=== PATIENT | male | born 2000 | race American Indian/Alaskan Native ===

== ENCOUNTER 2021-02-18 13:55 | Emergency (ER) | payer BC ==
--- NOTE | 2021-02-18 14:19 | Emergency Department Report ---
ED Male HPI - General Chief complaint: Urogenital-Male Stated complaint: TESTICLE PAIN Time Seen by Provider: 02/18/21 14:10 Source: patient Mode of arrival: Ambulatory Limitations: No Limitations - History of Present Illness Initial comments: This is a 20-year-old male who presents the emergency department the chief complaint of right testicular pain that has been ongoing for the past 3 years but has been more consistent and worsening over the past week. He reports in 2018 he had a testicular torsion of the right testicle that required surgery. He states the time from the onset of his pain until the time he had surgery was approximately 12 hours. He states over the last 3 years he has noticed that the right testicle has been much smaller than the left testicle and he feels small area of pinching that he thinks may be due to the stitches still being in his scrotum. He also reports a smooth area around the right testicle that he thinks may be causing him some pain. He denies any dysuria, penile discharge, fever, chills, night sweats, headache, dizziness, blurry vision, nausea, vomiting, diarrhea, chest pain or shortness of breath, abdominal pain or any other associated symptoms. - Related Data Previous Rx's Medication Instructions Recorded Last Taken Type Naproxen 500 mg PO BID #20 tablet 02/18/21 Unknown Rx Allergies Allergy/AdvReac Type Severity Reaction Status Date / Time LOBSTER Allergy Itching Uncoded 02/18/21 14:01 SHRIMP Allergy Itching Uncoded 02/18/21 14:01 ED Review of Systems ROS: Stated complaint: TESTICLE PAIN Other details as noted in HPI Comment: All other systems reviewed and negative Constitutional: denies: chills, fever Eyes: denies: eye pain, eye discharge, vision change ENT: denies: ear pain, throat pain Respiratory: denies: cough, shortness of breath, wheezing Cardiovascular: denies: chest pain, palpitations Endocrine: no symptoms reported Gastrointestinal: denies: abdominal pain, nausea, diarrhea Genitourinary: as per HPI, testicular pain. denies: urgency, dysuria Musculoskeletal: denies: back pain, joint swelling, arthralgia Skin: denies: rash, lesions Neurological: denies: headache, weakness, paresthesias Psychiatric: denies: anxiety, depression Hematological/Lymphatic: denies: easy bleeding, easy bruising ED Past Medical Hx - Past Medical History Previous Medical History?: No - Surgical History Past Surgical History?: Yes Additional Surgical History: TORSION - Medications Home Medications: Home Medications Medication Instructions Recorded Confirmed Last Taken Type Naproxen 500 mg PO BID #20 tablet 02/18/21 Unknown Rx ED Physical Exam - General Limitations: No Limitations General appearance: alert, in no apparent distress - Head Head exam: Present: atraumatic, normocephalic - Eye Eye exam: Present: normal appearance, PERRL, EOMI Pupils: Present: normal accommodation - ENT ENT exam: Present: normal exam, normal orophraynx, mucous membranes moist - Neck Neck exam: Present: normal inspection. Absent: tenderness, meningismus - Respiratory Respiratory exam: Present: normal lung sounds bilaterally. Absent: respiratory distress - Cardiovascular Cardiovascular Exam: Present: regular rate, normal rhythm. Absent: systolic murmur, diastolic murmur, rubs, gallop - GI/Abdominal GI/Abdominal exam: Present: soft, normal bowel sounds. Absent: distended, tenderness, guarding - Rectal Rectal exam: Present: deferred - exam: Present: normal inspection, testicular tenderness (Mild tenderness to the right epididymis, the right testicle is much smaller than the left. There is no scrotal edema. There are no obvious inguinal hernias.), vertical testicular lie (Testicles are lying low in the scrotum) - Extremities Exam Extremities exam: Present: normal inspection, full ROM, normal capillary refill. Absent: tenderness, calf tenderness - Back Exam Back exam: Present: normal inspection - Neurological Exam Neurological exam: Present: alert, oriented X3 - Psychiatric Psychiatric exam: Present: normal affect, normal mood - Skin Skin exam: Present: warm, dry, intact, normal color. Absent: rash ED Course Vital Signs 02/18/21 02/18/21 13:57 14:03 Temperature 98.1 F Pulse Rate 82 Respiratory 16 20 Rate Blood Pressure 119/62 [Right] O2 Sat by Pulse 100 Oximetry - Reevaluation(s) Reevaluation #1: 02/18/21 14:48 Based on the patient's description and his exam I suspect that there may be atrophy of the right testicle secondary to the previous torsion since there was 12 hours between revascularization in 2018. The area of pinching I suspect could be from where he had sutures although I think it be unlikely to still have sutures in the scrotum. The area of tenderness around the testicle I think is likely secondary to the epididymis. He was confident that he had not come in contact with any sexually transmitted infections. We did check a urine sample that is pending. Ultrasound was ordered. I plan to have him follow-up with urology on these findings possibly with antibiotics if epididymoorchitis is seen on ultrasound or infection is seen in the urine. ED Medical Decision Making - Lab Data Lab Results 02/18/21 Range/Units Unknown Urine Bilirubin Neg (Negative) Lab Results 02/18/21 Range/Units Unknown Urine Color Yellow (Yellow) Urine Turbidity Clear (Clear) Urine pH 5.0 (5.0-7.0) Ur Specific [place] 1.026 (1.003-1.030) Urine Protein <15 mg/dl (Negative) mg/dL Urine Glucose (UA) Neg (Negative) mg/dL Urine Ketones Neg (Negative) mg/dL Urine Blood Neg (Negative) Urine Nitrite Neg (Negative) Urine Bilirubin Neg (Negative) Urine Urobilinogen < 2.0 (<2.0) mg/dL Ur Leukocyte Esterase Neg (Negative) Urine WBC (Auto) < 1.0 (0.0-6.0) /HPF Urine RBC (Auto) < 1.0 (0.0-6.0) /HPF Urine Mucus 1+ /HPF - Radiology Data Radiology results: report reviewed, image reviewed LTRASOUND SCROTUM INDICATION / CLINICAL INFORMATION: right testicular pain, hx of torsion in 2018. COMPARISON: None available. FINDINGS -- RIGHT TESTIS: Size = 3.2 x 1.0 x 2.0 cm. - Appearance: Diffuse heterogeneous echotexture. - Cyst or Mass: None. - Color Doppler Flow: No significant abnormality. EPIDIDYMIS: No significant abnormality. HYDROCELE: None. VARICOCELE: None demonstrated. FINDINGS -- LEFT TESTIS: Size = 4.0 x 2.2 x 2.7 cm. - Appearance: No significant abnormality. - Cyst or Mass: None. - Color Doppler Flow: No significant abnormality. EPIDIDYMIS: Tiny epididymal head cyst. HYDROCELE: None. VARICOCELE: Mild varicocele present. ADDITIONAL FINDINGS: None. IMPRESSION: 1. Right testicle is asymmetrically smaller and diffusely heterogeneous. This is nonspecific though may reflect sequela of remote insult/torsion. There is normal symmetric Doppler flow within both testicles without evidence of acute torsion or inflammation. 2. Left-sided varicocele. Signer Name: Silvestre Cardona MD Signed: 02/18/2021 3:43 PM Workstation Name: [id number] Transcribed By: KAYLEY Dictated By: SILVESTRE CARDONA MD Electronically Authenticated By: SILVESTRE CARDONA MD Signed Date/Time: 02/18/21 1543 - Medical Decision Making Patient is testicular ultrasound showed normal Doppler flow. Slightly smaller testicle on the right which is the previous torsed testicle. No obvious signs of inflammation per radiologist. I will send the patient with anti- inflammatories and outpatient follow-up with urology. Return precautions for any change or worsening symptoms. Verbalized understand the diagnosis, treatment plan and follow-up instructions all his questions were answered. - Differential Diagnosis Testicular torsion, epididymitis, inguinal hernia Critical care attestation.: If time is entered above; I have spent that time in minutes in the direct care of this critically ill patient, excluding procedure time. ED Disposition Clinical Impression: Testicular pain, right Disposition: 01 HOME / SELF CARE / HOMELESS Is pt being admited?: No Condition: Stable Instructions: Testicular Self-Exam, [id number] Prescriptions: Naproxen 500 mg PO BID #20 tablet Referrals: EMI YOUNG MD [Staff Physician] - 3-5 Days Time of Disposition: 15:57
[2021-02-18 14:44] LABS: Bilirubin,Urine NEG (Negative); Blood,Urine NEG (Negative); Color,Urine Yellow (Yellow); Mucus,Urine 1+ /HPF; Protein,Urine <15 mg/dL mg/dL (Negative); Urobilinogen,Urine < 2.0 mg/dL (<2.0); WBC,Urine < 1.0 /HPF (0.0-6.0)
[2021-02-18 15:05] LABS: RBC,Urine < 1.0 /HPF (0.0-6.0)
--- NOTE | 2021-02-18 15:47 | Ultrasound Report ---
ULTRASOUND SCROTUM INDICATION / CLINICAL INFORMATION: right testicular pain, hx of torsion in 2018. COMPARISON: None available. FINDINGS -- RIGHT TESTIS: Size = 3.2 x 1.0 x 2.0 cm. - Appearance: Diffuse heterogeneous echotexture. - Cyst or Mass: None. - Color Doppler Flow: No significant abnormality. EPIDIDYMIS: No significant abnormality. HYDROCELE: None. VARICOCELE: None demonstrated. FINDINGS -- LEFT TESTIS: Size = 4.0 x 2.2 x 2.7 cm. - Appearance: No significant abnormality. - Cyst or Mass: None. - Color Doppler Flow: No significant abnormality. EPIDIDYMIS: Tiny epididymal head cyst. HYDROCELE: None. VARICOCELE: Mild varicocele present. ADDITIONAL FINDINGS: None. IMPRESSION: 1. Right testicle is asymmetrically smaller and diffusely heterogeneous. This is nonspecific though m ay reflect sequela of remote insult/torsion. There is normal symmetric Doppler flow within both testi cles without evidence of acute torsion or inflammation. 2. Left-sided varicocele. Signer Name: Branden Williamson MD Signed: 02/18/2021 3:43 PM Workstation Name: [id number]
[2021-02-18 16:39] VITALS: BP 114/59
== END 2021-02-18 16:39 | disposition home or self-care (01) ==
LOC: ED 13:55
DX: N50.811 Right testicular pain (principal); Z98.890 Other specified postprocedural states
CPT/HCPCS: 81001; 93975; 99284